=== PATIENT | female | born 1995 | race African-American/Black ===

== ENCOUNTER 2017-12-02 20:46 | Emergency (ER) | payer SELFPAY ==
[~2017-12-02] VITALS: Ht 165.1 cm; Wt 66.0 kg
[2017-12-02] MEDS ORDERED: ONDANSETRON 4MG ODT PO STA (23:51)
[2017-12-03 00:16] LABS: BASOPHILS % 0.3 % (0.0-2.0); EOSINOPHILS % 0.2 % (0.0-5.0); HEMATOCRIT. 31.3 % (36.0-48.0); LYMPHOCYTES % 14.9 % (20.0-50.0); MEAN CORPUSCULAR VOLUME 71.9 fL (81.0-99.0); MEAN PLATELET VOLUME 7.6 fl (7.4-10.4); MONOCYTES % 7.3 % (2.0-8.0); NEUTROPHILS % 77.3 % (40.0-76.0); PLATELET 309 x1000/uL (130-400); RED BLOOD CELL COUNT 4.35 mill/uL (4.2-5.4); RED CELL DISTRIBUTION WIDTH 16.5 % (11.6-14.6)
[2017-12-03 00:22] LABS: CHLORIDE 103 mEq/L (98-107)
[2017-12-03 00:28] LABS: ETHANOL BLOOD < 10 mg/dL
[2017-12-03 01:38] LABS: CLARITY URINE CLOUDY (CLEAR); COLOR URINE YELLOW (YELLOW); KETONES URINE NEGATIVE (NEGATIVE); LEUKOCYTE ESTERASE URINE TRACE (NEGATIVE); NITRITE URINE NEGATIVE (NEGATIVE); OCCULT BLOOD URINE 2+ (NEGATIVE); PROTEIN URINE TRACE (NEGATIVE); SPECIFIC GRAVITY URINE 1.026 (1.005-1.030)
[2017-12-03 02:12] LABS: *AMPHETAMINES SCREEN URINE NEGATIVE (NEGATIVE); *BARBITURATES SCREEN URINE NEGATIVE (NEGATIVE); *BENZODIAZEPINES SCREEN URINE NEGATIVE (NEGATIVE); *COCAINE SCREEN URINE NEGATIVE (NEGATIVE)
[2017-12-03 02:13] LABS: METHADONE URINE SCREEN NEGATIVE (NEGATIVE); OPIATES URINE SCREEN NEGATIVE (NEGATIVE); PHENCYCLIDINE URINE SCREEN NEGATIVE (NEGATIVE)
[2017-12-03 02:22] LABS: CANNABINOID URINE SCREEN PRESUMTIVE POSITIVE (NEGATIVE)
[2017-12-03 06:00] VITALS: BP 108/52
== END 2017-12-03 06:08 | disposition home or self-care (01) ==
LOC: ER 21:00
DX: F12.10 Cannabis abuse, uncomplicated (principal); N39.0 Urinary tract infection, site not specified
CPT/HCPCS: 36415; 80053; 80305; 80307; 80329; 81003; 81025; 83690; 85025; 99284; G0482; Q0162